=== PATIENT | male | born 1975 | race Two or more races ===

== ENCOUNTER 2024-07-09 16:32 | Emergency (ER) | payer OTHER ==
[~2024-07-09] VITALS: Ht 177.8 cm; Wt 100.0 kg
[2024-07-09] MEDS ORDERED: IBUP-1455 PO (19:39)
[2024-07-09] MEDS ORDERED: CYCL-837 PO (19:39)
[2024-07-09 20:25] VITALS: BP 146/92; PULSE 76; RESP 16; O2SAT 97
== END 2024-07-09 20:28 | disposition home or self-care (01) ==
LOC: ER 16:39
DX: S60.212A Contusion of left wrist, initial encounter (principal); S40.012A Contusion of left shoulder, initial encounter; S80.02XA Contusion of left knee, initial encounter; S06.89AA Other specified intracranial injury with loss of consciousness status unknown, initial encounter; Z88.5 Allergy status to narcotic agent; X58.XXXA Exposure to other specified factors, initial encounter; Y93.9 Activity, unspecified; Y92.89 Other specified places as the place of occurrence of the external cause; Y99.8 Other external cause status
CPT/HCPCS: 70450; 71250; 72125; 73100; 73562; 74176